=== PATIENT | female | born 1990 | race Caucasian/White ===

== ENCOUNTER 2025-01-09 16:51 | Inpatient (IN) | payer OTHER, SELFPAY ==
[2025-01-09] VITALS (86 sets, daily range): BP systolic 94–133; BP diastolic 44–81; PULSE 60–110; TEMP 36.3–36.8; O2SAT 94–100; BMI 29.8
--- NOTE | 2025-01-09 18:14 | P.HP_ITS ---
H&P: HPI History of Present Illness Date/Time: 01/09/25 18:14 Chief Complaint: contractions Narrative: Elizabeth is a 34yo @ 36.4wks who presented to her routine visit today. At her visit, she endorsed worsening contractions/back pains since Wednesday. In clinic, she was examined and found to be 4.5/60/-2. On arrival to L&D, she was found to be susan regularly every 2-4 minutes. She denies VB or LOF. She has had regular care. Her is complicated by: - Low lying placenta; RESOLVED - GDM; A1, diet controlled Review of Systems Constitutional: Constitutional: Denies chills, Denies fever(s) and Denies headache(s) Eyes: Eyes: Denies change in vision ENT: Denies headache(s) Cardiovascular: Cardiovascular: Denies chest pain and Denies dyspnea Respiratory: Respiratory: Denies dyspnea Genitourinary: Genitourinary: Denies abnormal vaginal bleeding and Denies vaginal discharge Neurologic: Denies headache(s) Psychiatric: Psychiatric: Denies anxiety and Denies depression [facility] Past Medical History Medical History Encounter for IUD removal mirena IUD removal 03/13/2024 Surgical History Surgical History History of ankle surgery Family History Family History (Updated 01/03/25 @ 14:25 by Erinn Aguilar RN) Grandparent Breast cancer Lung cancer Father Hypertension Mother Hypertension Social History Social History Smoking status: Never smoker Alcohol intake: never Substance use: never Do You Feel Safe in your Home?: Yes Lack of Transportation: No Lack of Food: Never True Current Housing: I Have Housing Concerned About Future Housing: No Difficulty Paying Gas/Electric Bills: No Difficulty Paying for Meds: No Currently Unemployed: No Education: Bachelor's Degree Difficulty w/ Childcare or Family Care: No Living arrangements: with family Occupation/Education: occupation 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 Gender identity (if verbalized by the patient): Female Sexual Orientation (if Verbalized by the Patient): Straight or Heterosexual Spiritual care concerns: No Meds Home Medications and Allergies Home Medications ?Medication ?Instructions ?Recorded ?Confirmed ?Type docosahexaenoic acid 200 mg mg PO 06/22/24 01/09/25 Hi story capsule ( DHA) ondansetron 4 mg disintegrating 4 mg PO Q6H PRN nausea and 06/22/24 01/09/25 Rx tablet vomiting #30 tabs psyllium husk 0.4 gram capsule 0.4 g PO DAILY 06/22/24 01/09/25 History (Daily Fiber) esomeprazole magnesium 20 mg 20 mg PO DAILY 10/10/24 1 History capsule,delayed release ferrous sulfate 325 mg (65 mg 325 mg PO DAILY 10/10/24 01/09/25 History iron) tablet (Feosol) blood sugar diagnostic (OneTouch #100 ea 12/06/2412/14 Rx Verio test strips) blood-glucose meter (OneTouch #1 ea 12/06/24 01/09/25 Rx Verio Flex Meter) lancets 30 gauge #100 ea 12/06/24 01/09/25 Rx RSV vac, preF A and preF B(PF) 120 0.5 ml IM ONCE #1 e a 12/12/24 01/09/25 Rx mcg/0.5 mL IM solution (Abrysvo (PF)) Allergies Allergy/AdvReac Type Severity Reaction Status Date / Time No Known Allergies Allergy Verified 01/09/25 15:59 Exam Const: General: cooperative, healthy appearing, no acute distress and uncomfortable (with contractions) Orientation/consciousness: patient oriented x3 Resp: Effort & Inspection: normal respiratory effort Cardio: Rate: regular rate GI: GI Palp: No abdominal tenderness : Other: FHT's: 145's/ mod jacob/ + accels/ no decels - cat 1 TOCO: ctxs q2-4min Cervix: 4.5/60/-2 Membranes: intact Presentation: cephalic Skin: General skin exam: normal color Neuro: General: patient oriented x3 Extrem: General: normal to inspection Psych: Appearance: grossly normal Affect: normal affect Attitude: cooperative Assessment and Plan Assessment and plan (1) labor: Qualifiers: labor trimester: third trimester Fetus number: single or unspecified fetus Code(s): O60.00 - labor without delivery, unspecified trimester Status: Acute Plan - Admit to L&D in labor - GBS unknown but <37wks; will give ampicillin ppx - Continuous monitoring - Will not plan for augmentation unless contractions space out and >6cm (active labor) - Anesthesia consult PRN pain
[2025-01-09 18:18] LABS: Hematocrit 33.1 % (37.0-47.0); Hemoglobin 11.2 g/dL (12.0-15.0); Immature Granulocyte Percent A 0.4 % (0-0.5); Lymphocytes Absolute Auto 1.54 K/mm3 (0.9-3.2); Mean Corpuscular HGB Conc 33.8 g/dl (32-36); Mean Corpuscular Hemoglobin 29.9 pg (26-34); Mean Corpuscular Volume 88.5 fl (80-100); Nucleated Red Blood Cells Absolute Auto 0.000 K/mm3 (0.0-0.012); Nucleated Red Blood Cells Perc 0.0 % (0.0-0.2); Platelet Count Result 203 k/mm3 (150-375); Red Blood Count 3.74 M/mm3 (4.2-5.4); White Blood Count 9.6 K/mm3 (4.5-10.0)
[2025-01-09] MEDS: LACTATED RINGERS 1,000 ML 125 ML IV CONT (18:30)
[2025-01-09] MEDS: AMPICILLIN SODIUM 2 GM in SODIUM CHLORIDE 0.9% IV 100 ML 200 ML IVPB (18:30)
[2025-01-09 18:56] LABS: Syphilis IgG/IgM Antibody Non-Reactive (Nonreactive)
[2025-01-09 18:57] LABS: Alanine Aminotransferase 13 U/L (6-35); Albumin Level 3.7 g/dL (3.5-5.1); Alkaline Phosphatase 159 U/L (38-126); Anion Gap 7 mmol/L (4-12); Aspartate Amino Transferase 24 U/L (14-36); Bilirubin,Total 0.6 mg/dL (0.2-1.3); Blood Urea Nitrogen 11 mg/dL (7-17); Calcium 9.1 mg/dL (8.4-10.2); Carbon Dioxide 17 mmol/L (22-30); Chloride 107 mmol/L (98-107); Estimated Glomerular Filt Rate > 60; Glucose 78 mg/dL (65-110); Potassium 3.9 mmol/L (3.4-5.0); Sodium 131 mmol/L (137-145); Total Protein 6.6 g/dL (6.3-8.2)
--- NOTE | 2025-01-09 19:21 | P.PNAN_ITS ---
Anes - Eval Pre Procedure Procedure: Labor epidural Date/Time: 01/09/25 19:21 Surgeon: Star Preop Diagnosis: Abdominal pain with contractions Pre Op Diagnosis: labor Patient Data Age: 34 Gender: F Height: Weight: Last Vital Signs Pulse 82 01/09/25 19:00 BP 113/64 01/09/25 19:00 Pulse Ox 100 01/09/25 19:20 Allergies Allergy/AdvReac Type Severity Reaction Status Date / Time No Known Allergies Allergy Verified 01/09/25 15:59 Home Medications ?Medication ?Instructions ?Recorded ?Confirmed ?Type docosahexaenoic acid 200 mg mg PO 06/22/24 01/09/25 Hi story capsule ( DHA) ondansetron 4 mg disintegrating 4 mg PO Q6H PRN nausea and 06/22/24 01/09/25 Rx tablet vomiting #30 tabs psyllium husk 0.4 gram capsule 0.4 g PO DAILY 06/22/24 01/09/25 History (Daily Fiber) esomeprazole magnesium 20 mg 20 mg PO DAILY 10/10/24 1 History capsule,delayed release ferrous sulfate 325 mg (65 mg 325 mg PO DAILY 10/10/24 01/09/25 History iron) tablet (Feosol) blood sugar diagnostic (OneTouch #100 ea 12/06/2412/14 Rx Verio test strips) blood-glucose meter (OneTouch #1 ea 12/06/24 01/09/25 Rx Verio Flex Meter) lancets 30 gauge #100 ea 12/06/24 01/09/25 Rx RSV vac, preF A and preF B(PF) 120 0.5 ml IM ONCE #1 e a 12/12/24 01/09/25 Rx mcg/0.5 mL IM solution (Abrysvo (PF)) Laboratory Tests 01/09/25 01/09/25 01/09/25 17:35 18:00 18:33 WBC 9.6 K/mm3 (4.5-10.0) RBC 3.74 L M/mm3 (4.2-5.4) Hgb 11.2 L g/dL (12.0-15.0) Hct 33.1 L % (37.0-47.0) MCV 88.5 fl (80-100) MCH 29.9 pg (26-34) MCHC 33.8 g/dl (32-36) RDW 12.5 % (11.5-14.5) Plt Count 203 k/mm3 (150-375) MPV 10.0 fl (7.4-10.4) Immature Gran % (Auto) 0.4 % (0-0.5) Neut % (Auto) 76.8 H % (45.5-73.1) Lymph % (Auto) 16.1 L % (18.3-44.2) [place] % (Auto) 6.3 % (2.6-8.5) Eos % (Auto) 0.3 % (0-4.4) Baso % (Auto) 0.1 L % (0.2-1.2) Lymph # (Auto) 1.54 K/mm3 (0.9-3.2) [place] # (Auto) 0.6 K/mm3 (0.1-0.6) Eos # (Auto) 0.0 K/mm3 (0-0.3) Baso # (Auto) 0.0 K/mm3 (0.0-0.1) Abs Immat Gran (auto) 0.04 H K/mm3 (0.00-0.031) Absolute Neuts (auto) 7.4 H K/mm3 (1.3-6.7) Absolute Nucleated RBC 0.000 K/mm3 (0.0-0.012) Nucleated RBC % 0.0 % (0.0-0.2) Sodium 131 L mmol/L (137-145) Potassium 3.9 mmol/L (3.4-5.0) Chloride 107 mmol/L (98-107) Carbon Dioxide 17 L mmol/L (22-30) Anion Gap 7 mmol/L (4-12) BUN 11 mg/dL (7-17) Creatinine 0.43 L mg/dL (0.7-1.0) Estim Creat Clear Calc Not Reportable Estimated GFR > 60 (59 - ) Glucose 78 mg/dL (65-110) POC Capillary Glucose 77 mg/dl (65-105) Calcium 9.1 mg/dL (8.4-10.2) Total Bilirubin 0.6 mg/dL (0.2-1.3) AST 24 U/L (14-36) ALT 13 U/L (6-35) Alkaline Phosphatase 159 H U/L (38-126) Total Protein 6.6 g/dL (6.3-8.2) Albumin 3.7 g/dL (3.5-5.1) Syphilis IgG/IgM Ab Non-reactive (Nonreactive) Blood Type A Positive Antibody Screen Negative : gestational age HCG: positive Patient hx anesthesia problems: none Family hx anesthesia problems: none Results Review: All pre-operative results and documents have been reviewed as part of the pre- operative evaluation. [facility] Past Medical History Medical History Over weight Gestational diabetes and not yet delivered labor Encounter for IUD removal mirena IUD removal 03/13/2024 Surgical History Surgical History History of ankle surgery Family History Family History Grandparent Breast cancer Lung cancer Father Hypertension Mother Hypertension Social History Social History Smoking status: Never smoker Alcohol intake: never Substance use: never Do You Feel Safe in your Home?: Yes Lack of Transportation: No Lack of Food: Never True Current Housing: I Have Housing Concerned About Future Housing: No Difficulty Paying Gas/Electric Bills: No Difficulty Paying for Meds: No Currently Unemployed: No Education: Bachelor's Degree Difficulty w/ Childcare or Family Care: No Living arrangements: with family Occupation/Education: occupation 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
--- NOTE | 2025-01-09 20:02 | LDADM ---
This patient, Elizabeth Thayer, was admitted to Labor/Delivery/Recovery 106 on 01/09/25 at 16:51. Plans for labor, pain management and were discussed with patient. Patient/family oriented to hospital policies and general routines including ID bracelet, bed and alarms, visiting hours, pain management, procedures, bathroom and other care routines, personal items, smoking policy, room service/diet and guest tray routines, infant security routines, and visiting hours. Patient/Family are encouraged to report perceived risks to care and to ask questions if they do not understand what they are told or what they should do. See OBIX for further documentation.
[2025-01-09] MEDS: AMPICILLIN SODIUM 1 GM in SODIUM CHLORIDE 0.9% IV 50 ML 100 ML IVPB (22:28)
[2025-01-09] MEDS: CALCIUM CARBONATE (TUMS) 500 MG (200 MG ELEMENTAL) PO (22:30)
[2025-01-10] VITALS (158 sets, daily range): BP systolic 81–121; BP diastolic 40–94; PULSE 53–98; TEMP 36.8–37.2; O2SAT 93–100
[2025-01-10] MEDS: LACTATED RINGERS 1,000 ML 125 ML IV CONT ×2 (01:35→10:53)
[2025-01-10] MEDS: AMPICILLIN SODIUM 1 GM in SODIUM CHLORIDE 0.9% IV 50 ML 100 ML IVPB ×3 (02:30→10:52)
[2025-01-10] MEDS: OXYTOCIN 30 UNITS/NS 500 ML 30 UNITS/500 ML BAG IV CONT (03:10)
[2025-01-10] MEDS: ONDANSETRON INJ 4 MG/2 ML VIAL IV PUSH (05:25)
[2025-01-10] MEDS: CYCLOBENZAPRINE HCL 5 MG TABLET PO (05:51)
--- NOTE | 2025-01-10 07:26 | PM.OBPNLAB ---
Pain Control Date/time seen: 01/10/25 07:26 Pain control: epidural Pelvic Exam Dilation (cm): 5 Effacement (%): 50 station: -3 Amniotic membrane status: Intact Contractions Monitor mode: External Contraction frequency: 3 (-4) Contraction pattern: Regular Contraction intensity: Moderate Status status: Category l Assessment and Plan Comments: - cervix slightly more dilated but less effaced; not significant enough cervical change and no indication for delivery as she is <37wks - will stop epidural and monitor for additional 4 hours as she is still susan regularly - If she makes change to 6cm, will proceed with delivery; if no change, will discharge home-- pt aware of plan and agrees - heart rate tracing reassuring and no decelerations overnight - ampicillin ppx given - blood sugars stable
--- NOTE | 2025-01-10 12:06 | PM.OBPNLAB ---
Pain Control Date/time seen: 01/10/25 12:06 Pelvic Exam Dilation (cm): 5 Effacement (%): 50 station: -3 Amniotic membrane status: Intact Contractions Monitor mode: External Contraction frequency: 3 (-4) Contraction pattern: Regular Contraction intensity: Moderate Status status: Category l Assessment and Plan Comments: - no change in cervix - heart rate tracing reassuring; normal vitals - discharge home as we have no medical indication for induction especially before 37wks
--- NOTE | 2025-01-11 12:43 | PM.OBDSVD ---
DS: Admitting Diagnosis Discharge Date 01/10/25 Admitting Diagnosis contractions DS: Discharge Diagnosis Discharge Diagnosis (1) contractions: Code(s): O47.00 - False labor before 37 completed weeks of gestation, unspecified trimester Status: Acute OB - DS: Summary Hospital Course Hospital Course: Elizabeth is a 34yo @ 36.4wks who presented to her routine visit today. At her visit, she endorsed worsening contractions/back pains since Wednesday. In clinic, she was examined and found to be 4/60/-2. On arrival to L&D, she was found to be susan regularly every 2-4 minutes. She denies VB or LOF. She has had regular care. she was kept overnight and monitored closely; she did receive an epidural due to painful/frequent contractions and had made change to 5/70/-2. She however, stopped making cervical change after that. Due to reassuring heart rate tracing and no cervical change; we did not augment labor as she was <37wks w/o any maternal or indications. Her vitals remained stable. ROM + was negative. heart rate tracing was reassuring the entire admission w/o decelerations. The epidural was discontinued and she was monitored for an additional 4 hours and re-checked and still had no cervical change. She was able to walk and urinate prior to discharge home. OB Procedures : NST, Ultrasound and PTL Mgmt OB Procedures Intrapartum: Other (none; discharged home ) OB Procedures: : None Status at Discharge Functional status at discharge: independent ambulation Overall status at discharge: patient is back to baseline Time Spent with Patient Time attestation: Total time spent providing and/or coordinating discharge services: Exam Const: General: cooperative, healthy appearing, no acute distress and uncomfortable (with contractions) Orientation/consciousness: patient oriented x3 Resp: Effort & Inspection: normal respiratory effort Cardio: Rate: regular rate GI: GI Palp: No abdominal tenderness : Other: FHT's: 145's/ mod jacob/ + accels/ no decels - cat 1 TOCO: ctxs q2-4min Cervix: 5/50/-3 Membranes: intact Presentation: cephalic Skin: General skin exam: normal color Neuro: General: patient oriented x3 Extrem: General: normal to inspection Psych: Appearance: grossly normal Affect: normal affect Attitude: cooperative Discharge Plan Discharge Attending physician on discharge: Eula Graves Consulting providers: Yohannes Machuca; Frankie Coy Jr. Discharging Clinician: Eula Graves Anticipated Discharge Date/Time: 01/10/25 12:07 Patient Disposition: Home Activity: may shower and as tolerated Diet: gestational diabetic Discharge Instructions: OB ANTEPARTUM DISCHARGE INSTRUCTIONS This information is given to help you properly care for yourself at home after your discharge from the hospital. Follow these instructions until your doctor tells you otherwise. DIET: Eat Three Well Balanced Meals per Day Small Frequent Feedings Drink at Least Eight 8-Ounce Glasses of Caffeine-Free Beverages Daily Gestational Diabetic Additional Diet Instructions: ACTIVITY: As Tolerated Additional Activity Instructions: RETURN TO LABOR AND DELIVERY IF YOU HAVE: Any Change In Baby's Normal Movement Pattern Any Leakage of Fluid Contractions 3-5 Minutes Apart with Increasing Intensity Vaginal Bleeding Additional Reasons to Return to Labor and Delivery: Contractions may feel like abdominal pain, tightening, cramping, pressure, back ache, or thigh ache. FOLLOW-UP CARE: Keep Next Scheduled Appointment Valuables released to patient or family? N/A Medications from home returned to patient? N/A I Acknowledge Receipt of and Understand the Above Instructions IF YOU HAVE ANY QUESTIONS REGARDING THESE INSTRUCTIONS, PLEASE CALL [phone]. IF PROBLEMS ARISE, CALL YOUR PROVIDER. IF EMERGENCY CARE IS NEEDED, [facility] EMERGENCY ROOM IS AVAILABLE 24 HOURS A DAY. Patient Language: Cameroonian Stand Alone Forms: General Discharge Information Follow-up/Referrals: Eula Graves MD [Physician, FREIGHT SEPARATOR] - Keep Reg. Scheduled Appt. Discharge Medications: Continued Abrysvo (PF) 120 mcg/0.5 mL recon soln 0.5 ml IM ONCE Qty: 1 0RF Rx Instructions: as a single dose CHRISTA 02/02/25 DHA 200 mg capsule PO psyllium husk [Daily Fiber] 0.4 gram capsule 0.4 g PO DAILY ondansetron 4 mg tablet,disintegrating 4 mg PO Q6H PRN (Reason: nausea and vomiting) Qty: 30 2RF ferrous sulfate [Feosol] 325 mg (65 mg iron) tablet 325 mg PO DAILY esomeprazole magnesium 20 mg capsule,delayed release(DR/EC) 20 mg PO DAILY (DME) blood-glucose meter [Similar [employer] Verio Flex meter] Misc See Rx Instructions .Route Qty: 1 0RF Rx Instructions: As directed (DME) lancets 30 gauge misc See Rx Instructions .Route Qty: 100 3RF Rx Instructions: test 4xs a day (DME) OneTouch Verio test strips Strip See Rx Instructions .Route Qty: 100 3RF Rx Instructions: test 4xs a day Date of admission: 01/09/25 16:51 Primary Care Provider: PHYSICIAN,GAS EXAMINER Admitting Provider: Eula Graves Attending physician on admission: Eula Graves Condition: Stable
== END 2025-01-10 12:30 | disposition home or self-care (01) | DRG 833 ==
PROVIDERS: Admitting Provider Obstetrics & Gynecology; Visit Provider Obstetrics & Gynecology
DX: O60.03 Preterm labor without delivery, third trimester (principal); O24.410 Gestational diabetes mellitus in pregnancy, diet controlled; Z3A.36 36 weeks gestation of pregnancy
CPT/HCPCS: 36415; 80053; 82948; 85025; 86593; 86850; 86900; 86901; A9270; J0290; J2405; J2590; J2795; J7120

== ENCOUNTER 2025-01-17 15:58 | Outpatient (CLI) | payer OTHER, SELFPAY ==
--- NOTE | 2025-01-17 16:45 | PC.NURSE ---
Dr. Graves notified of pts c/o leaking and ROM plus test was negative. Orders received to perform a cervical check.
--- NOTE | 2025-01-17 16:51 | PC.NURSE ---
Cervical checked unchanged from last office visit. Dr. Graves notified. DC orders received.
[2025-01-17 17:04] LABS: OBXCEM ROM Plus Negative (Negative)
--- OUTSIDE RECORDS SUMMARY | 2025-01-18 15:14 | XMS_ITS | Data Portability ---
[facility] Address [address] [place] [address] Assessment No assessment recorded. Plan of Treatment Reminders Order Date Submit Date Provider Last Modified By Organization Details Last Modified Time Details Appointments None recorded. Lab None recorded. Referral dermatologi st referral 2024 025 LUTHER Chavez MD (Dermatology) , [address] [facility] , [facility] [place], [address], 5 12:15:02 gynecologis t referral - Please call pt to schedule appt 2023 024 LUTHER [id number], [address], [address], [place], [address], 4 16:50:33 Procedures None recorded. Surgeries None recorded. Imaging None recorded. Medication Orders Augmentin 875 mg-125 mg tablet 2023 024 LUTHER [facility], [address] [place], [address], 4 09:01:18 Patient TargetsNo targets recorded. 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 Problems No Known Problems Procedures Surgical History Date Name Laterality Status Provider Name and Address Organization Details Recorded Time procedure on ankle completed Braydon Vo LPN [facility] 2023 14:10:40 Imaging Results None recorded. Procedure Notes None recorded. Medical Equipment None Reported. Allergies No known drug allergies Medications Name Sig Start Date Stop Date Status Note LastModified by Organization Details LastModified Time benzonatate 100 mg capsule 05/10 completed Not Available Not Available Not Available amoxicillin 875 mg-potassium clavulanate 125 mg tablet Take 1 tablet every 12 hours by oral route for 10 days. 10/04 completed Not Available Not Available Not Available Mirena active Not Available Not Availa ble Not Available Vitals Date Recorded Body weight Body mass index (BMI) Body height Heart rate Respiratory rate Systolic And Diastolic Provider Name and Address Organization Details Last Updated DateTime 4 31474.4 8 g 23.2 kg/m2 149.86 cm 80 /min 16 /min 126/70 mm[Hg] Braydon Vo LPN [facility] 4 14:04:50 Date Recorded Body height Provider Name an d Address Organization Details Last Updated DateTime 05/26/2023 149.86 cm RANDOLPH Viveros Attn: Accounting,[address] [place], [address], [place] [facility] [place] 05/26/2023 10:24:18 Date Recorded Body height Body mass index (BMI) Body weight Oxygen saturation Oxygen saturation in Arterial blood by Pulse oximetry Heart rate Respiratory rate Systolic And Diastolic Provider Name and Address Organization Details Last Updated DateTime 5 147.95 cm 26.4 kg/m2 48643.3 3 g 99 % 99 % 68 /min 15 /min 118/70 mm[Hg] Vera Oneal MA [facility] 5 08:53:16 Date Recorded Body height Body mass index (BMI) Body weight Oxygen saturation Oxygen saturation in Arterial blood by Pulse oximetry Heart rate Respiratory rate Systolic And Diastolic Provider Name and Address Organization Details Last Updated DateTime 4 147.95 cm 23.2 kg/m2 70859.0 5 g 98 % 98 % 70 /min 18 /min 116/76 mm[Hg] Vera Pham MA [facility] 4 09:53:23 Social History Question Answer Notes LastModified by Organizat ion Details LastModified Time Tobacco Smoking Status Former Smoker quit 08/2023 Vera Pham MA [facility], [facility] 10/05/2023 09:54:40 Do You Have An Advance Directive? No Information not available 10/05/2023 Are You Blind Or Do You Have Difficulty Seeing? No Information not available 10/05/2023 What Is Your Level Of Caffeine Consumption? Moderate Information not available 10/05/2023 In The 14 Days Before Symptom Onset, Have You Had Close Contact With A Laboratory-confir med COVID-19 While That Case Was Ill? No Information not available 10/05/2023 In The 14 Days Before Symptom Onset, Have You Had Close Contact With A Person Who Is Under Investigation For COVID-19 While That Person Was Ill? No Information not available 10/05/2023 Have You Been To An Area Known To Be High Risk For COVID-19? No Information not available 10/05/2023 Are You Deaf Or Do You Have Serious Difficulty Hearing? No Information not available 10/05/2023 What Type Of Diet Are You Following? REGULAR Information not available 10/05/2023 Are There Any Guns Present In Your Home? No Information not available 10/05/2023 What Was The Date Of Your Most Recent Tobacco Screening? 09/12/2024 [email or web address] Information not available 09/12/2024 How Many Children Do You Have? 2 Information not available 10/05/2023 What Is Your Relationship Status? Information not available 10/05/2023 Do You Use Your Seat Belt Or Car Seat Routinely? Yes Information not available 10/05/2023 Are You Sexually Active? Yes Information not available 10/05/2023 Do You Have Smoke And Carbon Monoxide Detectors In Your Home? Yes Information not available 10/05/2023 At What Age Did You Start Smoking Tobacco? 19 Information not available 10/05/2023 Are You Passively Exposed To Smoke? No Information no t available 10/05/2023 Do You Use Sunscreen Routinely? Yes Information not available 10/05/2023 Has Tobacco Cessation Counseling Been Provided? No Information not available 10/05/2023 Sex: Female Functional Status Question Answer Note LastModified by Organizat ion Details LastModified Time Do you use any illicit or recreational drugs? No Information not available 10/05/2023 Do you or have you ever used any other forms of tobacco or nicotine? No [email or web address] Information not available 2023 What is your level of alcohol consumption? Occasional Information not available 10/05/2023 Are you currently employed? Yes Information not available 10/05/2023 Are you able to care for yourself independently? 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 Occasional Information not available 10/05/2023 Mental Status Question Answer Note LastModified by Organization D etails LastModified Time Do you feel stressed (tense, restless, nervous, or anxious, or unable to sleep at night)? [id number] Information not available 10/05/2023 Family History Relationship Description Onset Age of this Age Resolved Age Notes LastModified by Organization Details LastModified Time Mother Hypertensive disorder [email or web address] Not available 2023 14:07:22 Father Hypercholest erolemia [email or web address] Not available 2023 14:07:50 Medical History Condition Response Coronary Artery Disease N Other N High Blood Pressure N Atrial Fibrillation N Thyroid Problems N Kidney or Bladder Problems N GI Problems N Depression N COPD N Blood Clots N Have you had a mammogram in the last yea r? N Skin Problems N Eating Disorder N Anemia N Heart Attack (IA) N Anxiety Disorder N Diabetes N Muscle, Joint, or Bone Problems N Arthritis N Seizures/Epilepsy N Have you had a colonoscopy in the last 1 0 years? N Acid Reflux (GERD) N Cancer N Stroke N Asthma N Allergies N Have you had a PSA blood test in the las t year? N ADHD N Substance Abuse N High Cholesterol N Hepatitis N Liver Disease N Schizophrenia N Headaches N Heart Failure N Osteoporosis N Gynecological History Statement/Question Response Current Control Method None Date of LMP Obstetrics History GPAL:G 2 P 0 0 0 2 Type Value Living 2 Total 2 Immunizations Vaccine Type Date Status Note Provider Nam e and Address Organization Details Recorded Time Hib, unspecified formulation 1991 completed Telisa [place], [employer] [place], [place] [facility] 2023 14:11:12 Hib, unspecified formulation 1991 completed Telisa [place], [employer] [place] [facility] 2023 14:11:12 Hib, unspecified formulation 1991 completed Telisa [place], [employer] [place] [facility] 2023 14:11:12 Hib, unspecified formulation 11/29/1992 completed Telisa [place], [employer] [place] [place] [facility] 2023 14:11:12 HPV9 06/01/2018 completed Telisa [place], [employer] [place] [facility] 2023 14:11:12 MMR 07/18/1996 completed Telisa [place], [employer] [place] [facility] 2023 14:11:12 MMR 08/07/1992 completed Telisa [place], [employer] [place] [facility] 2023 14:11:12 COVID-19, mRNA, LNP-S, PF, 100 mcg/0.5mL dose or 50 mcg/0.25mL dose 03/27/2020 completed Telisa [place], [employer] [place] [facility] 2023 14:11:12 COVID-19, mRNA, LNP-S, PF, 100 mcg/0.5mL dose or 50 mcg/0.25mL dose 04/20/2020 completed Telisa [place], [employer] [place] [facility] 2023 14:11:12 Tdap 06/24/2005 completed Telisa [place], [employer] [place] [place] [facility] 2023 14:11:13 Tdap 03/11/2021 completed Telisa [place], [employer] [place] [place] [facility] 2023 14:11:13 varicella 04/07/2016 completed Telisa [place], [employer] [place] [facility] 2023 14:11:13 varicella 02/27/2014 completed Telisa [place], [employer] [place] [facility] 2023 14:11:13 DTP 1991 completed Telisa [place], [employer] [place] [facility] 2023 14:11:13 DTP 1991 completed Telisa [place], [employer] [place] [facility] 2023 14:11:13 DTP 1991 completed Telisa [place], [employer] [place] [facility] [place]23 14:11:13 DTP 11/29/1992 completed Telisa [place], [employer] [place] [facility] [place]23 14:11:13 OPV, trivalent 1991 completed Telisa [place], [employer] [place] [facility] [place]23 14:11:13 OPV, trivalent 07/18/1996 completed Telisa [place], [employer] [place] [facility] [place]23 14:11:13 OPV, trivalent 1991 completed Telisa [place], [employer] [place] [facility] [place]23 14:11:13 OPV, trivalent 11/29/1992 completed Telisa [place], [employer] [place] [facility] 2023 14:11:13 Influenza, split virus, trivalent, PF 04/07/2016 completed Telisa [place], [employer] [place] [facility] 2023 14:11:13 Influenza, split virus, trivalent, PF 01/11/2015 completed Telisa [place], [employer] [place] [facility] 2023 14:11:13 Hep B, adolescent or pediatric 06/29/2001 completed Telisa [place], [employer] [place] [facility] 2023 14:11:13 Hep B, adolescent or pediatric 12/29/2000 completed Telisa [place], [employer] [place] [facility] [place]23 14:11:13 Hep B, adolescent or pediatric 01/26/2001 completed Telisa [place], [employer] [place] [facility] [place]23 14:11:13 DTaP 07/18/1996 completed Telisa [place], [employer] [place] [facility] [place]23 14:11:13 Influenza, split virus, quadrivalent, PF 12/31/2017 completed Telisa [place], [employer] [place] [facility] [place]23 14:11:13 Influenza, split virus, quadrivalent, PF 01/05/2017 completed Telisa [place], [employer] [place] [facility] 2023 14:11:13 Influenza, split virus, quadrivalent, PF 01/10/2019 completed Telisa [place], [employer] [place] [facility] [place]23 14:11:13 Influenza, split virus, quadrivalent, PF 01/22/2021 completed Telisa [place], [employer] [place] [facility] 2023 14:11:13 Tdap 12/18/2024 completed Vera Oneal [place], [place] [facility] 12/18/2024 16:43:59 Past Encounters Encounter ID Performer Location Encounter Start Date Encounter Closed Date Diagnosis/Indication Diagnosis SNOMED-CT Code Diagnosis ICD10 Code Diagnosis IMO Codes Diagnosis Note [id number] TRENA Viveros [facility] [address] [place] [address] 2023 13:42:58 2023 14:26:50 Contraception care 946905865 Z30.40 05/07/23: new patient with . current contracept ion method is mirena, placed 1.5 years ago. pt reports plan to remove in january, as she will likely desire at that time. requests referral to [facility] and will oblige. Depression screening 171 127402 Z13.31 Normal weight 03710812 Z 68.23 [id number] TRENA Viveros [address] [place] [address] 05/26/2023 08:34:16 05/26/2023 10:45:16 Acute sinusitis 61389357 J01.90 05/26/23: video visit: third day of rhinitis, neck pain, malaise, sore throat, DEL CID, ear fullness with cough starting this am. no fever, chills, NVD, rash. child at home with mild URI symptoms. likely viral URI, but inclined to cover for AOM/ABRS with augmentin. educated on ADRs and home symptomati c therapy in detail. RTC as needed any lack of improvemen t in one week or any worsening. pt comfortabl e with plan. 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 no acute concerns today. exam is good. form filled out and sent with patient. Depression screening 171 036463 Z13.31 [id number] MD Jaoo Quintero [address] [place] [address] 09/12/2024 08:43:25 09/12/2024 09:30:34 Body mass index 20-24 - normal 140284165 Z68.23 [id number] Dysplastic nevus of skin 481552116 D22.9 [id number] 09/12/24: pt gives history of numerous longstandi ng pigmented nevi over nevi. feels several have been growing over past year. most significan tly has lesion to midback to L of midline that is 1cm in diameter, 3mm raised fleshy light brown/pink lesion with cauliflowe r-like texture that rubs on bra strap and is consistent ly irritated. note >12 other smaller but otherwise similar-ap pearing lesions over trunk and face. consider intraderma l nevus vs. other. will refer to dermatolog y. 35174242 Z34.9 0 [id number] TRENA Viveros [address] [place] [address] 12/18/2024 16:28:54 12/19/2024 17:27:07 Immunization due 051853270 Z23 [id number] Health Concerns Section Related Observation LastModified by Organization Detai ls LastModified Time None Recorded Concern Status LastModified by Organization Details LastModified Time None Recorded Advance Directives Directive N: Payers Insurance Date Sequence Insurance Name Policy Number Policy Pierre Covered Member ID Pierre Member ID Guarantor Name 12/18/2024 1 [facility] - [place] () Elizabeth Thayer [id number] Elizabeth Thayer 10/05/2023 2 [facility] - DOS ON OR AFTER 20 (MEDICAID REPLACEMENT - HMO) Elizabeth Rico [id number] Elizabeth Thayer 08/13/2023 3 [facility] [facility] [id number] Elizabeth Rico [id number] Elizabeth Thayer 08/13/2023 2 [place] [employer] Elizabeth Rico [id number] Elizabeth Thayer 09/11/2024 1 [place] - [place] () Elizabeth Rico [id number] Elizabeth Thayer 08/13/2023 2 [facility] [facility] - DOS PRIOR TO 2024 (MEDICAID REPLACEMENT - HMO) Elizabeth Rico [id number] Elizabeth Thayer Notes Date Note Type Note Provider Name and Address Organization Details Recorded Time 2023 text/html ROS as noted in the HPI Pt presents for [facility] referral. no acute complaints today. Pt denies fever, chills, headaches, syncope, chest pain, shortness of breath, abdominal pain, NVD, joint problems, skin problems. Polo Hair PA-C Attn: Accounting[address] [place], [address], [facility] 2023 14:33:14 05/26/2023 text/html 05/26/23: video visit: third day of rhinitis, neck pain, malaise, sore throat, DEL CID, ear fullness with cough starting this am. no fever, chills, NVD, rash. child at home with mild URI symptoms. Polo Hair PA-C Attn: Accounting[address] [place], [address], [facility] 05/26/2023 10:35:13 10/05/2023 text/html ROS as noted in the HPI Pt presents for work physical. no acute concerns today. Pt denies fever, chills, headaches, syncope, chest pain, shortness of breath, abdominal pain, NVD, joint problems, skin problems. Polo Hair PA-C Attn: Accounting[address] [place], [address], [facility] 10/05/2023 10:18:49 09/12/2024 text/html ROS as noted in the HPI Patient presents for evaluation of numerous longstanding pigmented nevi over nevi. feels several have been growing over past year. most significantly has lesion to midback to L that rubs on bra strap and is consistently irritated. denies crusting, bleeding, fluctuance, ulceration. Polo Hair PA-C Attn: Accounting[address] [place], [address], [facility] 09/13/2024 10:40:36 OBGyn Episode No OBEpisode recorded.
== END 2025-01-17 17:01 | disposition home or self-care (01) ==
LOC: ANHOBOP 16:38
PROVIDERS: Visit Provider Obstetrics & Gynecology
DX: O42.90 Premature rupture of membranes, unspecified as to length of time between rupture and onset of labor, unspecified weeks of gestation (principal); Z3A.00 Weeks of gestation of pregnancy not specified
CPT/HCPCS: 84112

== ENCOUNTER 2025-01-26 04:36 | Inpatient (IN) | payer OTHER, SELFPAY ==
[2025-01-26] VITALS (163 sets, daily range): BP systolic 95–147; BP diastolic 38–115; PULSE 53–139; RESP 16; TEMP 36.6–37.1; O2SAT 86–100; BMI 28.9; BMI 29.1
[2025-01-26 05:22] LABS: Hematocrit 34.3 % (37.0-47.0); Hemoglobin 11.4 g/dL (12.0-15.0); Immature Granulocyte Percent A 0.5 % (0-0.5); Lymphocytes Absolute Auto 1.59 K/mm3 (0.9-3.2); Mean Corpuscular HGB Conc 33.2 g/dl (32-36); Mean Corpuscular Hemoglobin 29.7 pg (26-34); Mean Corpuscular Volume 89.3 fl (80-100); Nucleated Red Blood Cells Absolute Auto 0.000 K/mm3 (0.0-0.012); Nucleated Red Blood Cells Perc 0.0 % (0.0-0.2); Platelet Count Result 182 k/mm3 (150-375); Red Blood Count 3.84 M/mm3 (4.2-5.4); White Blood Count 7.3 K/mm3 (4.5-10.0)
[2025-01-26] MEDS: LACTATED RINGERS 1,000 ML 125 ML IV CONT ×2 (05:28→12:03)
[2025-01-26] MEDS: AMPICILLIN SODIUM 2 GM in SODIUM CHLORIDE 0.9% IV 100 ML 200 ML IVPB (05:29)
[2025-01-26 05:58] LABS: Alanine Aminotransferase 14 U/L (6-35); Albumin Level 3.5 g/dL (3.5-5.1); Alkaline Phosphatase 160 U/L (38-126); Anion Gap 9 mmol/L (4-12); Aspartate Amino Transferase 23 U/L (14-36); Bilirubin,Total 0.5 mg/dL (0.2-1.3); Blood Urea Nitrogen 12 mg/dL (7-17); Calcium 8.9 mg/dL (8.4-10.2); Carbon Dioxide 15 mmol/L (22-30); Chloride 108 mmol/L (98-107); Estimated Glomerular Filt Rate > 60; Glucose 99 mg/dL (65-110); Potassium 3.8 mmol/L (3.4-5.0); Sodium 132 mmol/L (137-145); Total Protein 6.4 g/dL (6.3-8.2)
[2025-01-26 06:07] LABS: Syphilis IgG/IgM Antibody Non-Reactive (Nonreactive)
[2025-01-26] MEDS: OXYTOCIN 30 UNITS/NS 500 ML 30 UNITS/500 ML BAG IV CONT (08:40)
--- NOTE | 2025-01-26 08:47 | LDADM ---
This patient, Elizabeth Thayer, was admitted to Labor/Delivery/Recovery 102 on 01/26/25 at 04:36. Plans for labor, pain management and were discussed with patient. Patient/family oriented to hospital policies and general routines including ID bracelet, bed and alarms, visiting hours, pain management, procedures, bathroom and other care routines, personal items, smoking policy, room service/diet and guest tray routines, infant security routines, and visiting hours. Patient/Family are encouraged to report perceived risks to care and to ask questions if they do not understand what they are told or what they should do. See OBIX for further documentation.
[2025-01-26] MEDS: AMPICILLIN SODIUM 1 GM in SODIUM CHLORIDE 0.9% IV 50 ML 100 ML IVPB ×2 (09:39→13:36)
--- NOTE | 2025-01-26 11:28 | P.PNAN_ITS ---
Anes - Eval Pre Procedure Procedure: labor pain management Date/Time: 01/26/25 11:28 Surgeon: Broderick Graves Preop Diagnosis: pain during labor Pre Op Diagnosis: IOL Patient Data Age: 34 Gender: F Height: 1.5 m Weight: 65.5 kg Last Vital Signs Temp 98.1 F 01/26/25 09:50 Pulse 80 01/26/25 11:15 BP 109/70 01/26/25 11:15 Pulse Ox 99 01/26/25 11:25 O2 Del Method Room Air 01/26/25 08:45 Allergies Allergy/AdvReac Type Severity Reaction Status Date / Time No Known Allergies Allergy Verified 01/26/25 08:48 Home Medications ?Medication ?Instructions ?Recorded ?Confirmed ?Type docosahexaenoic acid 200 mg mg PO 06/22/24 01/23/25 Hi story capsule ( DHA) ondansetron 4 mg disintegrating 4 mg PO Q6H PRN nausea and 06/22/24 01/26/25 Rx tablet vomiting #30 tabs psyllium husk 0.4 gram capsule 0.4 g PO DAILY 06/22/24 01/26/25 History (Daily Fiber) esomeprazole magnesium 20 mg 20 mg PO DAILY 10/10/24 1 03/28/24 History capsule,delayed release ferrous sulfate 325 mg (65 mg 325 mg PO DAILY 10/10/24 01/26/25 History iron) tablet (Feosol) blood sugar diagnostic (OneTouch #100 ea 12/06/2401/13 Rx Verio test strips) blood-glucose meter (OneTouch #1 ea 12/06/24 01/26/25 Rx Verio Flex Meter) lancets 30 gauge #100 ea 12/06/24 01/26/25 Rx RSV vac, preF A and preF B(PF) 120 0.5 ml IM ONCE #1 e a 12/12/24 01/23/25 Rx mcg/0.5 mL IM solution (Abrysvo (PF)) Laboratory Tests 01/26/25 01/26/25 01/26/25 05:12 05:27 09:52 WBC 7.3 K/mm3 (4.5-10.0) RBC 3.84 L M/mm3 (4.2-5.4) Hgb 11.4 L g/dL (12.0-15.0) Hct 34.3 L % (37.0-47.0) MCV 89.3 fl (80-100) MCH 29.7 pg (26-34) MCHC 33.2 g/dl (32-36) RDW 12.5 % (11.5-14.5) Plt Count 182 k/mm3 (150-375) MPV 10.3 fl (7.4-10.4) Immature Gran % (Auto) 0.5 % (0-0.5) Neut % (Auto) 66.9 % (45.5-73.1) Lymph % (Auto) 21.7 % (18.3-44.2) Caroline % (Auto) 10.1 H % (2.6-8.5) Eos % (Auto) 0.7 % (0-4.4) Baso % (Auto) 0.1 L % (0.2-1.2) Lymph # (Auto) 1.59 K/mm3 (0.9-3.2) Caroline # (Auto) 0.7 H K/mm3 (0.1-0.6) Eos # (Auto) 0.1 K/mm3 (0-0.3) Baso # (Auto) 0.0 K/mm3 (0.0-0.1) Abs Immat Gran (auto) 0.04 H K/mm3 (0.00-0.031) Absolute Neuts (auto) 4.9 K/mm3 (1.3-6.7) Absolute Nucleated RBC 0.000 K/mm3 (0.0-0.012) Nucleated RBC % 0.0 % (0.0-0.2) Sodium 132 L mmol/L (137-145) Potassium 3.8 mmol/L (3.4-5.0) Chloride 108 H mmol/L (98-107) Carbon Dioxide 15 L mmol/L (22-30) Anion Gap 9 mmol/L (4-12) BUN 12 mg/dL (7-17) Creatinine 0.47 L mg/dL (0.7-1.0) Estim Creat Clear Calc Not Reportable Estimated GFR > 60 (59 - ) Glucose 99 mg/dL (65-110) POC Capillary Glucose 92 mg/dl (65-105) Calcium 8.9 mg/dL (8.4-10.2) Total Bilirubin 0.5 mg/dL (0.2-1.3) AST 23 U/L (14-36) ALT 14 U/L (6-35) Alkaline Phosphatase 160 H U/L (38-126) Total Protein 6.4 g/dL (6.3-8.2) Albumin 3.5 g/dL (3.5-5.1) Syphilis IgG/IgM Ab Non-reactive (Nonreactive) Blood Type A Positive Antibody Screen Negative Patient hx anesthesia problems: none Family hx anesthesia problems: none Results Review: All pre-operative results and documents have been reviewed as part of the pre- operative evaluation. [facility] Past Medical History Medical History Over weight Gestational diabetes and not yet delivered labor Encounter for IUD removal mirena IUD removal 03/13/2024 Surgical History Surgical History History of ankle surgery Family History Family History Grandparent Breast cancer Lung cancer Father Hypertension Mother Hypertension Social History Social History Smoking status: Former smoker Tobacco type: cigarettes Smoking end date: 07/28/23 Alcohol intake: never Substance use: never Do You Feel Safe in your Home?: Yes Lack of Transportation: No Lack of Food: Never True Current Housing: I Have Housing Concerned About Future Housing: No Difficulty Paying Gas/Electric Bills: No Difficulty Paying for Meds: No Currently Unemployed: No Education: Bachelor's Degree Difficulty w/ Childcare or Family Care: No Living arrangements: with family Occupation/Education: occupation 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
--- NOTE | 2025-01-26 12:25 | PM.IMHP ---
H&P: HPI History of Present Illness Date/Time: 01/26/25 12:25 Chief Complaint: contractions Narrative: Elizabeth is a 34yo @ 39.0wks who presents for elective IOL. She reports good movement. She denies VB or LOF. She has been feeling irregular contractions. She has had regular care. Her is complicated by: - Low lying placenta; RESOLVED - GDM; A1, diet controlled - Advanced cervical dilation - GBS positive Review of Systems Constitutional: Constitutional: Denies chills, Denies fever(s) and Denies headache(s) Eyes: Eyes: Denies change in vision ENT: Denies headache(s) Cardiovascular: Cardiovascular: Denies chest pain and Denies dyspnea Respiratory: Respiratory: Denies dyspnea Genitourinary: Genitourinary: Denies abnormal vaginal bleeding, Reports pelvic pain and Denies vaginal discharge Neurologic: Denies headache(s) Psychiatric: Psychiatric: Denies anxiety and Denies depression [facility] Past Medical History Medical History (Updated 01/26/25 @ 12:30 by Eula Graves MD) Over weight Gestational diabetes and not yet delivered labor Encounter for IUD removal mirena IUD removal 03/13/2024 Surgical History Surgical History History of ankle surgery Family History Family History Grandparent Breast cancer Lung cancer Father Hypertension Mother Hypertension Social History Social History Smoking status: Former smoker Tobacco type: cigarettes Smoking end date: 07/28/23 Alcohol intake: never Substance use: never Do You Feel Safe in your Home?: Yes Lack of Transportation: No Lack of Food: Never True Current Housing: I Have Housing Concerned About Future Housing: No Difficulty Paying Gas/Electric Bills: No Difficulty Paying for Meds: No Currently Unemployed: No Education: Bachelor's Degree Difficulty w/ Childcare or Family Care: No Living arrangements: with family Occupation/Education: occupation 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 Gender identity (if verbalized by the patient): Female Sexual Orientation (if Verbalized by the Patient): Straight or Heterosexual Spiritual care concerns: No Meds Home Medications and Allergies Home Medications ?Medication ?Instructions ?Recorded ?Confirmed ?Type docosahexaenoic acid 200 mg mg PO 06/22/24 01/23/25 History capsule ( DHA) ondansetron 4 mg disintegrating 4 mg PO Q6H PRN nausea and 06/22/24 01/26/25 Rx tablet vomiting #30 tabs psyllium husk 0.4 gram capsule 0.4 g PO DAILY 06/22/24 01/26/25 History (Daily Fiber) esomeprazole magnesium 20 mg 20 mg PO DAILY 10/10/24 01/26/25 History capsule,delayed release ferrous sulfate 325 mg (65 mg 325 mg PO DAILY 10/10/24 01/26/25 History iron) tablet (Feosol) blood sugar diagnostic (OneTouch #100 12/06/24 01/23/25 Rx Verio test strips) blood-glucose meter (OneTouch #1 ea 12/06/24 01/26/25 Rx Verio Flex Meter) lancets 30 gauge #100 ea 12/06/24 01/26/25 Rx RSV vac, preF A and preF B(PF) 120 0.5 ml IM ONCE #1 ea 12/12/24 01/23/25 Rx mcg/0.5 mL IM solution (Abrysvo (PF)) Allergies Allergy/AdvReac Type Severity Reaction Status Date / Time No Known Allergies Allergy Verified 01/26/25 08:48 Vital Signs Vital Signs - 24 hr 01/26/25 05:35 01/26/25 05:40 01/26/25 05:45 Temperature Pulse Rate 79 Blood Pressure 120/80 Pulse Oximetry 100 99 100 Oxygen Delivery 01/26/25 05:50 01/26/25 05:55 01/26/25 06:00 Temperature 98.7 F Pulse Rate 75 Blood Pressure 131/78 Pulse Oximetry 100 99 100 Oxygen Delivery 01/26/25 06:05 01/26/25 06:10 01/26/25 06:15 Temperature Pulse Rate 77 Blood Pressure 124/78 Pulse Oximetry 100 100 100 Oxygen Delivery 01/26/25 06:20 01/26/25 06:25 01/26/25 06:30 Temperature Pulse Rate 84 Blood Pressure 106/80 Pulse Oximetry 100 100 100 Oxygen Delivery 01/26/25 06:35 01/26/25 06:40 01/26/25 06:45 Temperature Pulse Rate 68 Blood Pressure 125/68 Pulse Oximetry 100 99 100 Oxygen Delivery 01/26/25 06:50 01/26/25 06:55 01/26/25 07:00 Temperature Pulse Rate 74 Blood Pressure 119/72 Pulse Oximetry 99 100 99 Oxygen Delivery 01/26/25 07:05 01/26/25 07:11 01/26/25 07:15 Temperature Pulse Rate 78 Blood Pressure 122/71 Pulse Oximetry 99 100 Oxygen Delivery 01/26/25 07:16 01/26/25 07:21 01/26/25 07:26 Temperature Pulse Rate Blood Pressure Pulse Oximetry 99 99 97 Oxygen Delivery 01/26/25 07:30 01/26/25 07:48 01/26/25 07:53 Temperature Pulse Rate 79 Blood Pressure 121/71 Pulse Oximetry 99 99 Oxygen Delivery 01/26/25 07:58 01/26/25 08:00 01/26/25 08:03 Temperature Pulse Rate 78 Blood Pressure 119/66 Pulse Oximetry 100 100 Oxygen Delivery 01/26/25 08:08 01/26/25 08:13 01/26/25 08:15 Temperature Pulse Rate 76 Blood Pressure 118/73 Pulse Oximetry 100 100 Oxygen Delivery 01/26/25 08:18 01/26/25 08:23 01/26/25 08:28 Temperature Pulse Rate Blood Pressure Pulse Oximetry 98 99 99 Oxygen Delivery 01/26/25 08:30 01/26/25 08:33 01/26/25 08:38 Temperature Pulse Rate 83 Blood Pressure 95/50 L Pulse Oximetry 99 100 Oxygen Delivery 01/26/25 08:43 01/26/25 08:45 01/26/25 08:45 Temperature Pulse Rate 82 Blood Pressure 114/72 Pulse Oximetry 99 Oxygen Delivery Room Air 01/26/25 08:48 01/26/25 08:49 01/26/25 08:54 Temperature Pulse Rate Blood Pressure Pulse Oximetry 99 99 100 Oxygen Delivery 01/26/25 08:59 01/26/25 09:01 01/26/25 09:04 Temperature Pulse Rate 77 Blood Pressure 114/71 Pulse Oximetry 99 99 Oxygen Delivery 01/26/25 09:09 01/26/25 09:14 01/26/25 09:15 Temperature Pulse Rate 83 Blood Pressure 116/65 Pulse Oximetry 100 100 Oxygen Delivery 01/26/25 09:23 01/26/25 09:24 01/26/25 09:25 Temperature Pulse Rate Blood Pressure Pulse Oximetry 96 86 L 100 Oxygen Delivery 01/26/25 09:30 01/26/25 09:35 01/26/25 09:40 Temperature Pulse Rate 72 Blood Pressure 123/74 Pulse Oximetry 100 100 98 Oxygen Delivery 01/26/25 09:45 01/26/25 09:46 01/26/25 09:50 Temperature 98.1 F Pulse Rate 70 Blood Pressure 125/75 Pulse Oximetry 99 98 Oxygen Delivery 01/26/25 09:55 01/26/25 10:00 01/26/25 10:01 Temperature Pulse Rate 85 Blood Pressure 114/69 Pulse Oximetry 99 99 Oxygen Delivery 01/26/25 10:05 01/26/25 10:10 01/26/25 10:15 Temperature Pulse Rate 69 Blood Pressure 120/69 Pulse Oximetry 99 99 99 Oxygen Delivery 01/26/25 10:20 01/26/25 10:30 01/26/25 10:35 Temperature Pulse Rate Blood Pressure Pulse Oximetry 100 100 100 Oxygen Delivery 01/26/25 10:40 01/26/25 10:45 01/26/25 10:50 Temperature Pulse Rate 80 Blood Pressure 140/69 Pulse Oximetry 100 99 99 Oxygen Delivery 01/26/25 10:55 01/26/25 11:00 01/26/25 11:05 Temperature Pulse Rate 81 Blood Pressure 116/69 Pulse Oximetry 98 99 98 Oxygen Delivery 01/26/25 11:10 01/26/25 11:15 01/26/25 11:20 Temperature Pulse Rate 80 Blood Pressure 109/70 Pulse Oximetry 98 98 99 Oxygen Delivery 01/26/25 11:25 01/26/25 11:30 01/26/25 11:35 Temperature Pulse Rate 86 Blood Pressure 113/70 Pulse Oximetry 99 98 100 Oxygen Delivery 01/26/25 11:36 01/26/25 11:41 01/26/25 11:45 Temperature Pulse Rate 84 Blood Pressure 119/65 Pulse Oximetry 98 98 Oxygen Delivery 01/26/25 11:46 01/26/25 11:51 01/26/25 11:56 Temperature Pulse Rate Blood Pressure Pulse Oximetry 99 98 99 Oxygen Delivery 01/26/25 12:00 01/26/25 12:01 01/26/25 12:09 Temperature Pulse Rate 79 Blood Pressure 122/78 Pulse Oximetry 99 98 Oxygen Delivery 01/26/25 12:11 01/26/25 12:15 01/26/25 12:16 Temperature Pulse Rate 77 Blood Pressure 127/79 Pulse Oximetry 98 98 Oxygen Delivery 01/26/25 12:21 Temperature Pulse Rate Blood Pressure Pulse Oximetry 99 Oxygen Delivery Exam Const: General: cooperative, healthy appearing, comfortable and no acute distress Orientation/consciousness: patient oriented x3 Resp: Effort & Inspection: normal respiratory effort Cardio: Rate: regular rate GI: GI Palp: No abdominal tenderness : Other: FHT's: 1_0's/ mod jacob/ + accels/ no decels - cat 1 TOCO: ctxs q2-3min Cervix: 5.5/70/0 Membranes: clear 1225 Presentation: cephalic Skin: General skin exam: normal color Neuro: General: patient oriented x3 Extrem: General: normal to inspection Psych: Appearance: grossly normal Affect: normal affect Attitude: cooperative H&P: Results Labs Labs: Short CBC 01/26/25 Range/Units 05:12 WBC 7.3 (4.5-10.0) K/mm3 Hgb 11.4 L (12.0-15.0) g/dL Hct 34.3 L (37.0-47.0) % Plt Count 182 (150-375) k/mm3 BMP 01/26/25 05:27 Sodium 132 L Potassium 3.8 Chloride 108 H Carbon Dioxide 15 L BUN 12 Creatinine 0.47 L Glucose 99 Calcium 8.9 Liver Function 01/26/25 Range/Units 05:27 Total Bilirubin 0.5 (0.2-1.3) mg/dL AST 23 (14-36) U/L ALT 14 (6-35) U/L Alkaline Phosphatase 160 H (38-126) U/L Albumin 3.5 (3.5-5.1) g/dL Assessment and Plan Assessment and plan (1) Gestational diabetes: Qualifiers: Gestational diabetes mellitus control: diet-controlled Trimester: third trimester Qualified Code(s): O24.410 - Gestational diabetes mellitus in , diet controlled Code(s): O24.419 - Gestational diabetes mellitus in , unspecified control Status: Acute (2) Encounter for induction of labor: Code(s): Z34.90 - Encounter for supervision of normal , unspecified, unspecified trimester Status: Acute Plan - Admitted for induction of labor; risks and benefits discussed - GBS positive; s/p 2 doses of ampicillin - AROM, clear @ 1225 - low dose pitocin per protocol - Continuous monitoring - Anesthesia consult PRN pain
--- NOTE | 2025-01-26 15:05 | PM.OBPRVD ---
OB - Vaginal Delivery Note Procedure Delivery date: 01/26/25 Events: Gestational Diabetes (A1, diet controlled) and Positive Group B Strep (GBS) Delivery augmentation: Rupture of Membranes and Pitocin Delivery monitor: External FHT and External Uterine Route of delivery: Episiotomy description: None Laceration Description: None Specimen: Yes (placenta) Quantitative Blood Loss (ml): 50 Anesthesia type: Epidural Disposition: Floor Complications: No immediate complications Baby Date of : 01/26/25 Time of : 14:49 Gestational Age by Date: 40 gender: Female presentation: vertex Placenta delivery description: Expressed Cord Vessel Description: 3 Vessels and Delayed Cord Clamping score one minute: 9 score five minutes: 10 Narrative: Elizabeth rapidly progressed to complete dilation with strong desire to push. She pushed for 2 contractions with good maternal effort and delivered the head over intact perineum. No nuchal cord was palpated. She easily delivered the 's shoulders and body without complication. The was immediately placed skin to skin and had spontaneous cry. Delayed cord clamping was performed. The umbilical cord was then doubly clamped and cut by dad. A segment of the cord was collected for cord gases. The remaining cord blood was collected for typing. With Pitocin running and gentle downward traction on the cord, the placenta delivered without complication. Bimanual massage was performed and good uterine tone with minimal bleeding was noted. She was examined and no lacerations were identified. Sponge, lap, instrument, and needle counts were correct at the end of the procedure. Mom and baby were left bonding in the birthing suite in stable condition.
[2025-01-26] MEDS: OXYTOCIN 30 UNITS/NS 500 ML 30 UNITS/500 ML BAG 125 UNITS IV CONT (15:26)
[2025-01-26] MEDS: ACETAMINOPHEN 325 MG TABLET 650 MG PO (21:50)
[2025-01-27] VITALS: BP 118/72; PULSE 60; RESP 16; TEMP 36.7; O2SAT 99
[2025-01-27] MEDS: IBUPROFEN 600 MG TABLET PO ×2 (05:24→14:34)
[2025-01-27 07:56] LABS: Hematocrit 31.4 % (37.0-47.0); Hemoglobin 10.4 g/dL (12.0-15.0); Mean Corpuscular HGB Conc 33.1 g/dl (32-36); Mean Corpuscular Hemoglobin 29.9 pg (26-34); Mean Corpuscular Volume 90.2 fl (80-100); Platelet Count Result 143 k/mm3 (150-375); Red Blood Count 3.48 M/mm3 (4.2-5.4); White Blood Count 8.8 K/mm3 (4.5-10.0)
--- NOTE | 2025-01-27 08:45 | PM.OBPNVD ---
OB - PN: Subj Subjective Date/time seen: 01/27/25 08:15 Narrative: PPD#1 Elizabeth reports doing well today. 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 Her pain is controlled. She is tolerating regular diet, voiding, passing gas, and ambulating without issues. She is breast feeding. She would like to go home later today. OB - PN: Obj Data Labs 01/27/25 07:30 01/26/25 05:27 Labs: Laboratory Results - last 24 hr 01/26/25 01/26/25 01/26/25 05:12 05:27 09:52 WBC 7.3 RBC 3.84 L Hgb 11.4 L Hct 34.3 L MCV 89.3 MCH 29.7 MCHC 33.2 RDW 12.5 Plt Count 182 MPV 10.3 Immature Gran % (Auto) 0.5 Neut % (Auto) 66.9 Lymph % (Auto) 21.7 Crenshaw % (Auto) 10.1 H Eos % (Auto) 0.7 Baso % (Auto) 0.1 L Lymph # (Auto) 1.59 [place]renshaw # (Auto) 0.7 H Eos # (Auto) 0.1 Baso # (Auto) 0.0 Abs Immat Gran (auto) 0.04 H Absolute Neuts (auto) 4.9 Absolute Nucleated RBC 0.000 Nucleated RBC % 0.0 Sodium 132 L Potassium 3.8 Chloride 108 H Carbon Dioxide 15 L Anion Gap 9 BUN 12 Creatinine 0.47 L Estim Creat Clear Calc Not Reportable Estimated GFR > 60 Glucose 99 POC Capillary Glucose 92 Calcium 8.9 Total Bilirubin 0.5 AST 23 ALT 14 Alkaline Phosphatase 160 H Total Protein 6.4 Albumin 3.5 Syphilis IgG/IgM Ab Non-reactive Blood Type A Positive Antibody Screen Negative 01/26/25 13:40 WBC RBC Hgb Hct MCV MCH MCHC RDW Plt Count MPV Immature Gran % (Auto) Neut % (Auto) Lymph % (Auto) [place]renshaw % (Auto) Eos % (Auto) Baso % (Auto) Lymph # (Auto) [place]shaw # (Auto) Eos # (Auto) Baso # (Auto) Abs Immat Gran (auto) Absolute Neuts (auto) Absolute Nucleated RBC Nucleated RBC % Sodium Potassium Chloride Carbon Dioxide Anion Gap BUN Creatinine Estim Creat Clear Calc Estimated GFR Glucose POC Capillary Glucose 99 Calcium Total Bilirubin AST ALT Alkaline Phosphatase Total Protein Albumin Syphilis IgG/IgM Ab Blood Type Antibody Screen OB - PN A/P Assessment and Plan (1) Normal vaginal delivery of third : Code(s): O80 - Encounter for full-term uncomplicated delivery Status: Acute Plan day: 1 Plan: routine care Comments: - PO pain meds - Regular diet - Ambulation and hydration encouraged - Continue putting baby to breast q2-3hr - Pelvic rest; take meds as prescribed - ER return precautions: fever, n/v/abd pain, bleeding, HTN Time Spent With Patient Time: Total time spent is greater than 50% in coordination of care (as documented) at patient's floor/unit and/or counseling patient: Review of Systems Constitutional: Constitutional: Denies chills, Denies fever(s) and Denies headache(s) Eyes: Eyes: Denies change in vision ENT: Denies dizziness and Denies headache(s) Cardiovascular: Cardiovascular: Denies chest pain, Denies palpitations and Denies dyspnea Respiratory: Respiratory: Denies cough and Denies dyspnea Gastrointestinal: Gastrointestinal: Denies nausea and Denies vomiting Neurologic: Denies dizziness and Denies headache(s) Endocrine: Endocrine: Denies palpitations Exam Const: General: cooperative, comfortable and no acute distress Orientation/consciousness: patient oriented x3 Resp: Effort & Inspection: normal respiratory effort Auscultation: clear to auscultation bilaterally Cardio: Rate: regular rate GI: Inspection: non-distended GI Palp: No abdominal tenderness and Yes Soft to palpation Auscultation: normal bowel sounds : Other: fundus firm Skin: General skin exam: normal color Neuro: General: patient oriented x3 Extrem: General: normal to inspection Psych: Appearance: grossly normal Affect: normal affect Attitude: cooperative
[2025-01-27] MEDS: DOCUSATE SODIUM 100 MG CAPSULE PO (10:34)
[2025-01-27] MEDS: PANTOPRAZOLE 40 MG TABLET PO (10:34)
[2025-01-27] MEDS: ACETAMINOPHEN 325 MG TABLET 650 MG PO (10:34)
[2025-01-27 10:35] VITALS: BP 113/65; PULSE 80; RESP 18; TEMP 36.8; O2SAT 97
[2025-01-27] MEDS: MULTIVIT/MIN/PREN/FOL AC/IRON TABLET 1 TAB PO (10:35)
--- NOTE | 2025-01-27 13:00 | PC.NURSE ---
Introductions were made, then consulted with patient to assess needs related to . Mother led the conversation with her?plans to feed?her infant and the?experience so far. She breastfed her last baby and used a nipple shield and pumped. This baby has a cyst on the left upper gum that the air hammer stripper says will resolve spontaneously. After the first day of , mom had cracked and bleeding nipples. She believes it could be due to infants cyst rubbing the nipple during feedings. She was given a nipple shield last night and her nipples are less painful and seem to be healing. We reviewed risks of the nipple shield, cleaning, and recommendation to pump after each . She has a breast pump at home. Encouraged understanding of milk production and expected volumes at this time . Discussed safe use of oral syringes for small volumes of colostrum. Reviewed positioning and facilitating a deep latch to prevent any further nipple damage. Discussed nipple shield weaning. Education given to the parents on how to visualize the suckling (with good rocking jaw motion), swallows (dropping of the lower jaw) and how to listen for drinking at the breast. Reviewed comfort measures of healing and nipple care, use of hydrogel pads, and need to prevent infection of the nipples. Mother voiced understanding of calling out if does not latch or if there is discomfort with . She knows there are resources for outpatient services here at the hospital. Mom and baby guide used for education and reference. Parents voiced understanding of information, demonstrated learning and will call if there is a request for assistance. Reported to the Primary RN.
--- NOTE | 2025-01-27 13:24 | WPDANLDPN2 ---
Anes-Prog Note L&D Date/Time: 01/27/25 13:24 Comfortable throughout: labor and delivery Neuraxial method: epidural Epidural/Spinal procedure site: clean & non-tender Neuro status: Neuro function grossly intact. Cardiovascular status: normal Respiratory status: normal Airway patency: baseline Mental status: baseline Post-Op hydration status: normal Vital Signs: Last Vital Signs Temp 98.0 F 01/27/25 00:00 Pulse 60 01/27/25 00:00 Resp 16 01/27/25 00:00 BP 118/72 01/27/25 00:00 Pulse Ox 99 01/27/25 00:00 O2 Del Method Room Air 01/26/25 18:50 Pain score (VAS): 0 I/O: Intake & Output 01/26/25 01/27/25 01/27/25 23:59 07:59 15:59 Intake Total 987.5 Balance 987.5 Post-procedural complaints: none Patient feedback: Patient satisfied with anesthetic care.
[2025-01-29 10:28] VITALS: BP 119/74; PULSE 71; RESP 18; TEMP 36.6; O2SAT 99
--- NOTE | 2025-01-29 11:00 | S_PTH ---
PATIENT: Elizabeth Thayer LOC: [facility]2 U#:[id number] AGE/SX: 34/F ROOM: 287 RE01/26/[address]: Eula Graves MD : 1990 BED: 00 DIS: 01/27/2025 SPEC #: [id number] RECD: 01/29/25 11:01 STATUS: SUE REQ #: [id number] DEVI: 01/29/25 11:[address]: Eula Graves DEPT: [facility] Surgical RECD BY: Willy Ayers ENTERED: 01/29/25 11:02 SP TYPE: Surgical OTHR DR: UNKNOWN,DOCTOR Tissues: A - Placenta Procedures: Hematoxylin and Eosin Stain Gross and Microscopic Level 5
--- NOTE | 2025-01-29 15:52 | P.DS_ITS ---
DS: Admitting Diagnosis Discharge Date 01/27/25 Admitting Diagnosis induction of labor GBS positive advanced cervical dilation DS: Discharge Diagnosis Discharge Diagnosis (1) Normal vaginal delivery of third : Code(s): O80 - Encounter for full-term uncomplicated delivery Status: Acute OB - DS: Summary OB Procedures : NST, Ultrasound and PTL Mgmt OB Procedures Intrapartum: Spontaneous Vag Delivery OB Procedures: : None Peripartum Data Infant Delivery Method: Natural Vaginal Laceration Description: None Episiotomy description: None complications: none [place] 1: Gender: Female Disposition of : home Status at Discharge Functional status at discharge: independent ambulation Overall status at discharge: patient is back to baseline Time Spent with Patient Time attestation: Total time spent providing and/or coordinating discharge services: Exam Const: General: cooperative, healthy appearing, comfortable and no acute di stress Orientation/consciousness: patient oriented x3 Resp: Effort & Inspection: normal respiratory effort Auscultation: clear to auscultation bilaterally Cardio: Rate: regular rate GI: Inspection: non-distended GI Palp: No abdominal tenderness and Yes Soft to palpation Auscultation: normal bowel sounds : Other: fundus firm Skin: General skin exam: normal color Neuro: General: patient oriented x3 Extrem: General: normal to inspection Psych: Appearance: grossly normal Affect: normal affect Attitude: cooperative DS: Data Data Completed and Pending Pending studies at discharge: Pending at discharge 01/29/25 11:00 Surgical [PTH] Routine Discharge Plan Discharge Attending physician on discharge: Eula Graves Discharging Clinician: Eula Graves Anticipated Discharge Date/Time: 01/27/25 16:00 Patient Disposition: Home Activity: may shower and pelvic rest Diet: regular Discharge Instructions: Education: Mom and Baby Guide Given to: Mother Follow-Up: Call your delivering provider's office for an appointment to be seen in: 6 Weeks Mom and baby should come [facility] for the follow-up appointment. Appointment Date/Time: January 29, 2025 at 10:30 am What to expect at your follow-up visit: Blood Pressure Check Physical Assessment Call [phone] if you are unable to keep your appointment time. BREAST CARE: * Wear a snug supportive bra. * For engorgement discomfort: Breast Feeding: * Apply warm moist washcloths * Express milk as needed to relieve engorgement * Wear loose clothing Bottle Feeding: * May apply ice packs * For sore nipples: * Identify correct latch-on * Apply warm moist washcloths before and after nursing * Air dry nipples after nursing * May apply Lansinoh cream to nipples ABDOMINAL INCISION: (if applicable) * Allow incision to air dry * Do NOT use lotions for powders on your incision * When showering, allow soap and water to run over the incision, but do not wash incision EPISIOTOMY/PERINEAL CARE: * Until bleeding stops, use your marko bottle after urinating * Change your pad frequently throughout the day * You may take sitz baths several times a day (fill your bathtub with warm water and soak for 20 minutes.) Do NOT bathe in the water * No tub baths until seen by your physician - You may shower ACTIVITY: * Rest as much as possible. * Do not exercise or lift anything heavier than your baby (such as laundry or other children.) * Avoid stairs or driving as much as possible. * Do not put anything into the vagina. No douching, tampons, or sexual activity until seen by physician. NOTIFY PHYSICIAN IF YOU HAVE ANY QUESTIONS OR IF ANY OF THE FOLLOWING SYMPTOMS OCCUR: * If your episiotomy or incision becomes red, swollen, or more painful than what you have experienced in the hospital. * If your vaginal bleeding becomes foul smelling. * If your vaginal bleeding becomes more heavy than a period or if your bleeding changes from pink to bright red. However, you may pass an occasional walnut- sized clot once or twice for the first week . * If you experience a sharp, shooting pain in you calves. * If you discover a hard, reddened area on your breast or if you experience flu- like symptoms. DIET: * Eat regular, well-balanced meals. * Drink plenty of fluids daily. If , drink to thirst. Patient Language: Welsh Stand Alone Forms: General Discharge Information Follow-up/Referrals: Eula Graves MD [Physician, HORIZONTAL DRILL OPERATOR] - 4 Weeks Discharge Medications: New acetaminophen 325 mg Tablet 650 mg PO Q6H PRN (Reason: Mild Pain (1-3) Or Headache) Qty: 60 0RF docusate sodium 100 mg Capsule 100 mg PO BID PRN (Reason: Constipation) Qty: 90 0RF ibuprofen 600 mg Tablet 600 mg PO Q6H PRN (Reason: Cramping) Qty: 40 0RF Continued DHA 200 mg capsule PO psyllium husk [Daily Fiber] 0.4 gram capsule 0.4 g PO DAILY ferrous sulfate [Feosol] 325 mg (65 mg iron) tablet 325 mg PO DAILY esomeprazole magnesium 20 mg capsule,delayed release(DR/EC) 20 mg PO DAILY Discontinued Abrysvo (PF) 120 mcg/0.5 mL recon soln 0.5 ml IM ONCE Qty: 1 0RF Rx Instructions: as a single dose CHRISTA 02/02/25 ondansetron 4 mg tablet,disintegrating 4 mg PO Q6H PRN (Reason: nausea and vomiting) Qty: 30 2RF (DME) blood-glucose meter [OneTouch Verio Flex meter] Misc See Rx Instructions .Route Qty: 1 0RF Rx Instructions: As directed (DME) lancets 30 gauge misc See Rx Instructions .Route Qty: 100 3RF Rx Instructions: test 4xs a day (DME) OneTouch Verio test strips Strip See Rx Instructions .Route Qty: 100 3RF Rx Instructions: test 4xs a day Date of admission: 01/26/25 04:36 Primary Care Provider: UNKNOWN,DOCTOR Admitting Provider: Eula Graves Attending physician on admission: Eula Graves Condition: Stable
== END 2025-01-27 16:32 | disposition home or self-care (01) | DRG 807 ==
LOC: ANHLDR 04:49 → ANHOB2 18:31
PROVIDERS: Admitting Provider Obstetrics & Gynecology; Visit Provider Obstetrics & Gynecology
DX: O24.424 Gestational diabetes mellitus in childbirth, insulin controlled (principal); Z37.0 Single live birth; Z3A.39 39 weeks gestation of pregnancy; O99.824 Streptococcus B carrier state complicating childbirth
CPT/HCPCS: 36415; 80053; 82948; 85025; 85027; 86593; 86850; 86900; 86901; 88307; A9270; J0290; J2590; J2795; J7120